=== PATIENT | male | born 1955 | race Caucasian/White ===

== ENCOUNTER 2018-02-10 11:02 | Emergency (ER) | payer OTHER ==
[~2018-02-10] VITALS: Ht 170.2 cm; Wt 83.9 kg
--- NOTE | 2018-02-10 11:03 | NUR ---
PT AMBULATES TO BED 2
[2018-02-10 11:08] VITALS: BP 167/116
[2018-02-10] MEDS ORDERED: ASPIRIN 81 MG TAB.CHEW PO ONE (11:10)
--- NOTE | 2018-02-10 11:10 | NUR ---
Patient being evaluated by physician at bedside.
--- NOTE | 2018-02-10 11:10 | NUR ---
62Y/M BIB DAUGHTER WITH C/O RT SIDED CHEST PAIN 10/10 RADIATING TO THE BACK SINCE LAST NIGHT WITH NAUSEA AND DIZZINESS; WAS SEEN TODAY AT A CLINIC IN [place]. PT DTR STATES " IF THE CHEST DAYLIN CONSIST FOR THE DAY TO TAKE PT TO THE ER DEPT." BED DOWN, BEDRAIL UP X 1, ER MD AWARE AND NOTITIFIED OF PT STATUS. WILL CONT TO MONITOR PT. HX; HTN RX; "CAN'T REMEMBMER"
[2018-02-10 11:51] LABS: HEMATOCRIT 50.1 % (36-52); HEMOGLOBIN 17.2 g/dL (12.0-18.0); MEAN CORPUSCULAR HEMOGLOBIN 31 pg (27-31); MEAN CORPUSCULAR HGB CONC 34 g/dL (33-37); MEAN CORPUSCULAR VOLUME 89.7 fL (80-94); PLATELET COUNT (AUTO) 269 K/uL (140-450); RED BLOOD CELL COUNT(AUTO) 5.59 MIL/uL (4.20-6.10); RED CELL DISTRIBUTION WIDTH 13.1 % (11.6-13.7); WHITE BLOOD COUNT (AUTO) 14.1 K/uL (4.8-10.8)
[2018-02-10 12:05] LABS: BASOPHILS % (MANUAL) 0 % (0-2); EOSINOPHILS % (MANUAL) 0 % (0-4); LYMPHOCYTES % (MANUAL) 5 % (20-46); MONOCYTES % (MANUAL) 5 % (5-12)
[2018-02-10 12:13] LABS: ANION GAP 12.7 (8-16); CARBON DIOXIDE 28.8 mmol/L (21-32); CREATININE 1.1 mg/dL (0.7-1.3); POTASSIUM 4.5 mmol/L (3.5-5.1)
[2018-02-10 12:15] LABS: PROTHROMBIN TIME 10.4 secs (10.8-13.4)
[2018-02-10 12:18] LABS: ALBUMIN 4.2 g/dL (3.4-5.0); TOTAL BILIRUBIN 0.9 mg/dL (0.0-1.0)
[2018-02-10] MEDS ORDERED: KETOROLAC 60 MG/2 ML VIAL IM ONE (12:30)
[2018-02-10 13:11] VITALS: BP 155/98
--- NOTE | 2018-02-10 13:11 | NUR ---
Patient discharged with v/s stable. Written and verbal after care instructions given and explained. Patient alert, oriented and verbalized understanding of instructions. Ambulatory with steady gait. All questions addressed prior to discharge. ID band removed. Patient advised to follow up with PMD. Rx of norco, motrin given. Patient educated on indication of medication including possible reaction and side effects. Opportunity to ask questions provided and answered.
== END 2018-02-10 13:11 | disposition home or self-care (01) ==
LOC: MED 11:02
DX: R07.89 Other chest pain (principal); I10 Essential (primary) hypertension
CPT/HCPCS: 36415; 71045; 80053; 83880; 84484; 85025; 85610; 85730; 93005; 96372; 99285; J1885

== ENCOUNTER 2018-02-11 00:15 | Inpatient (IN) | payer OTHER ==
[~2018-02-11] VITALS: Ht 170.2 cm; Wt 83.9 kg
[2018-02-11 00:18] VITALS: BP 131/85
--- NOTE | 2018-02-11 00:21 | NUR ---
0018 TO ER BED 6
--- NOTE | 2018-02-11 00:34 | NUR ---
PT C/O R SIDED CHEST PAIN X1 DAY. WAS SEEN TODAY IN ED AT 1000. TOOK NORCO RX AT 0000 THEN PT SWEATING. DENIES N/V/D; SKIN IS PINK/WARM/DRY; AWAKE, ALERT LUNGS CLEAR BL; HR EVEN AND REGULAR; PT DENIES ANY FEVER, SOB, OR COUGH AT THIS TIME; PATIENT STATES PAIN OF 10/10 AT THIS TIME; VSS; PATIENT POSITIONED FOR COMFORT; HOB ELEVATED; BEDRAILS UP X2; BED DOWN. ER MD MADE AWARE OF PT STATUS.
[2018-02-11] MEDS ORDERED: KETOROLAC 30 MG/ML VIAL IVP ONE (00:35)
[2018-02-11] MEDS ORDERED: ASPIRIN 325 MG TAB PO ONE (00:35)
--- NOTE | 2018-02-11 00:46 | NUR ---
XRAY AT BEDSIDE
--- NOTE | 2018-02-11 00:58 | NUR ---
BLOOD DRAWN AND SENT TO COMMUNITY SERVICE WORKER
[2018-02-11 01:02] LABS: HEMATOCRIT 47.9 % (36-52); HEMOGLOBIN 16.4 g/dL (12.0-18.0); MEAN CORPUSCULAR HEMOGLOBIN 31 pg (27-31); MEAN CORPUSCULAR HGB CONC 34 g/dL (33-37); MEAN CORPUSCULAR VOLUME 89.2 fL (80-94); PLATELET COUNT (AUTO) 238 K/uL (140-450); RED BLOOD CELL COUNT(AUTO) 5.38 MIL/uL (4.20-6.10); RED CELL DISTRIBUTION WIDTH 13.3 % (11.6-13.7); WHITE BLOOD COUNT (AUTO) 14.5 K/uL (4.8-10.8)
[2018-02-11 01:13] LABS: ANION GAP 11.5 (8-16); CREATININE 1.3 mg/dL (0.7-1.3); POTASSIUM 3.5 mmol/L (3.5-5.1)
[2018-02-11 01:19] LABS: ALBUMIN 3.6 g/dL (3.4-5.0); TOTAL BILIRUBIN 2.1 mg/dL (0.0-1.0)
[2018-02-11 01:21] LABS: LYMPHOCYTES % (MANUAL) 5 % (20-46); MONOCYTES % (MANUAL) 8 % (5-12)
--- NOTE | 2018-02-11 01:22 | NUR ---
pt stated pain relived. pt's daughter at bedside.
[2018-02-11 01:33] LABS: PROTHROMBIN TIME 11.1 secs (10.8-13.4)
--- NOTE | 2018-02-11 02:45 | NUR ---
pt left for CT via wheelchair per tech.
--- NOTE | 2018-02-11 03:29 | NUR ---
pt sleeping, stated no pain. daughter at bedside.
[2018-02-11] MEDS ORDERED: NACL 0.9% 1,000 ML IV ONE (03:35)
--- NOTE | 2018-02-11 04:28 | NUR ---
NOTIFIED DR. MATA FOR THE CT CRITICAL REPORT.
--- NOTE | 2018-02-11 05:33 | NUR ---
REPORT GIVEN TO CHARGE NURSE JENNY. PT SLEEPING BUT AROUSABLE, PT STATED NO DISCOMFORT OR PAIN AT THIS MOMENT.
[2018-02-11] MEDS ORDERED: metroNIDAZOLE 500 MG/NS PREMIX 100 ML IV ONE (05:45)
[2018-02-11] MEDS ORDERED: PIPERACILLIN/TAZOBACTAM 3.375 GM in DEXTROSE 5% 50 ML IV ONE (05:45)
--- NOTE | 2018-02-11 06:00 | NUR ---
BLOOD CULTURES DRAWN AND WALKED OVER TO BLOOD BANK
[2018-02-11] MEDS ORDERED: PIPERACILLIN/TAZOBACTAM 3.375 GM VIAL IV ONE (06:10)
--- NOTE | 2018-02-11 06:41 | NUR ---
Patient appears to be resting comfortably in bed. Vital Signs within normal limits. Respirations even and unlabored.
--- NOTE | 2018-02-11 07:02 | NUR ---
Pt report given to MICHAELA. Transfer of care at this time.
[2018-02-11] MEDS ORDERED: MORPHINE SULFATE 2 MG/ML SYR IVP PRN ×2 (07:05→20:10)
[2018-02-11] MEDS ORDERED: ACETAMINOPHEN 325 MG TAB PO PRN (07:05)
[2018-02-11] MEDS ORDERED: ONDANSETRON 4 MG/2 ML VIAL IVP PRN (07:05)
--- NOTE | 2018-02-11 07:23 | NUR ---
RECEIVED REPORT FROM CRATE REPAIRER RN. PT RESTING IN BED. ALERT AWAKE. SKIN DRY AND INTACT. LUNGS CLEAR ON AUSCULTATION. LEFT AC 20G. SALINE LOCK. ABDOMEN SOFT, ROUND AND NON-TENDER. ACTIVE BOWEL SUND. SKIN INTACT. DENIES PAIN AT THIS TIME. VS WITHIN NORMAL LIMIT. WILL CONTINUE TO MONITOR.
[2018-02-11 07:25] VITALS: BP 110/75
--- NOTE | 2018-02-11 07:25 | NUR ---
RECEIVED PATIENT FROM ED VIA [employer]. RECEIVED REPORT FROM ED RN. PATIENT IN STABLE CONDITION. AO X4. SPEAKS FIL[place] AND PERSIAN. NO COMPLAINTS OF PAIN OR DISCOMFORT. DENIES CHEST PAIN. LUNGS CTA. HEART RHYTHM REGULAR. SKIN INTACT. PT IS AMBULATORY WITHOUT ASSIST, GAIT EVEN AND STEADY. IV SITE PATENT AND ASYMPTOMATIC, WILL START IVF PER MD ORDERS. ALL SAFETY PRECAUTIONS IN PLACE, WILL CONTINUE TO MONITOR.
--- NOTE | 2018-02-11 07:55 | NUR ---
Patient admitted to under the care of Dr. Swift . Admited to MST. Pt. transferred to go to room 112A, safely on stable condition. Belongings list completed. Report given to SOLOMON Boucher.
[2018-02-11] MEDS: DEXT 5% / NACL 0.9% 1,000 ML IV SCH ×2 (08:38→20:46)
--- NOTE | 2018-02-11 11:30 | NUR ---
PHARMACY HAS CALLED DR. VAZQUEZ/DR. CONDE FOR CLARIFICATION ON PAIN MEDICATION. THEY WILL UPDATE THE MEDICATIONS AND PUT INTO EMAR.
--- NOTE | 2018-02-11 12:17 | NUR ---
PT COMPLAINING OF 8/10 ABDOMINAL PAIN. WILL CALL PHARMACY FOR UPDATE ON PAIN MEDICATION.
--- NOTE | 2018-02-11 12:26 | NUR ---
EXPLAINED TO PATIENT THAT PAIN MEDS ARE NOT AVAILABLE YET, PHARMACY STILL HAS TO VERIFY/CLARIFY INFO REGARDING PAIN MEDICATION. PT STATES THAT ABDOMINAL PAIN IS NOW MILD, RATED 2/10, AND TOLERABLE.
[2018-02-11] MEDS: PIPER/TAZO 3.375GM/D5W PREMIX 50 ML IV SCH ×2 (14:05→20:46)
--- NOTE | 2018-02-11 14:50 | NUR ---
DR. PHARMACY, DR. CONDE HAS NOT CALLED BACK FOR PAIN MEDICATION CLARIFICATION.
--- NOTE | 2018-02-11 14:54 | NUR ---
CM NOTE ADMISSION CHART REVIEW DONE. INITIAL REVIEW FAXED TO [facility] [phone] ANGELLA # [phone]
[2018-02-11 16:00] VITALS: BP 118/76
--- NOTE | 2018-02-11 17:01 | NUR ---
USED TYPING POOL SUPERVISOR [id number] TO OBTAIN ADMISSIONS ASSESSMENT FROM PATIENT. PT IS AO X4, PORTUGUESE SPEAKING.
--- NOTE | 2018-02-11 19:39 | NUR ---
RECEIVED FROM AM RN IN BED AWAKE AND ALERT. CENTRAL AFRICAN SPEAKING MALE PT. DAUGHTER AT BEDSIDE AND SPEAKING FAROESE WELL. NO SOB. DENIES ANY PAIN AT THIS TIME. PT. DX. OF ACUTE CHOLECYSTITIS. RE-ORIENTED TO CALL LIGHT USE AND CARE PLANS FOR THE NIGHT DISCUSSED WITH THEM. ENCOURAGED TO CALL FOR ANY HELP HE MAY NEED.
--- NOTE | 2018-02-11 20:00 | NUR ---
TALKED WITH MD VAZQUEZ ON THE PHONE AND INFORMED HIM THAT PT. HAVE NO PAIN RELIEVER AND NEEDS TO BE RE-CLARIFIED. WITH NEW ORDERS GIVEN.
[2018-02-11] MEDS ORDERED: MORPHINE SULFATE 4 MG/ML SYR IVP PRN (20:10)
--- NOTE | 2018-02-11 22:00 | NUR ---
PT. TILL AWAKE AND WATCHING TV. DAUGHTER AT BEDSIDE . NO COMPLAINTS OF ANY PAIN DONE.
[2018-02-12 00:14] VITALS: BP 99/65
--- NOTE | 2018-02-12 00:15 | NUR ---
PT. SLEEPING. DAUGHTER AT BEDSIDE STILL. ENCOURAGED THE DAUGHTER TO GO HOME. "OK" PT. WOKE UP EASILY WHEN VITAL SIGNS BEING TAKEN. NO COMPLAINTS OF ANY DOLOR DONE.
--- NOTE | 2018-02-12 02:20 | NUR ---
PT. SLEEPING WELL. NO RESTLESSNESS NOTED. IVF INFUSING WELL AND NO S/S OF INFILTRATION. BED ALARM AT BEDSIDE.
--- NOTE | 2018-02-12 03:31 | NUR ---
SLEEPING. NO RESTLESSNESS.
[2018-02-12] MEDS: PIPER/TAZO 3.375GM/D5W PREMIX 50 ML IV SCH ×3 (06:08→21:33)
--- NOTE | 2018-02-12 07:15 | NUR ---
ENDORSED TO THE NEXT RN FOR CONTINUITY OF CARE. INDEPENDENT. NO COMPLAINTS DONE.
--- NOTE | 2018-02-12 07:15 | NUR ---
RECEIVED BEDSIDE REPORT FROM DEVELOPER PROVER MECHANICAL RN. PATIENT IN STABLE CONDITION. AO X4. FRENCH SPEAKING. DENIES PAIN AND DISCOMFORT. DENIES CHEST PAIN. LUNGS CTA. HEART RHYTHM REGULAR. VITALS STABLE. SKIN INTACT. PT IS AMBULATORY WITHOUT ASSIST, GAIT EVEN AND STEADY. IV SITE PATENT AND ASYMPTOMATIC, INFUSING IVF PER MD ORDERS. ALL SAFETY PRECAUTIONS IN PLACE, WILL CONTINUE TO MONITOR.
[2018-02-12 07:24] LABS: BASOPHILS % (AUTO) 0.2 % (0.0-2.0); EOSINOPHILS # (AUTO) 0.1 K/uL (0-0.4); EOSINOPHILS % (AUTO) 0.8 % (0.0-4.0); HEMATOCRIT 42.6 % (36-52); HEMOGLOBIN 14.7 g/dL (12.0-18.0); LYMPHOCYTES # (AUTO) 1.5 K/uL (2.0-11.5); MEAN CORPUSCULAR HEMOGLOBIN 31 pg (27-31); MEAN CORPUSCULAR HGB CONC 34 g/dL (33-37); MEAN CORPUSCULAR VOLUME 90.9 fL (80-94); MONOCYTES # (AUTO) 1.1 K/uL (0.8-1.0); MONOCYTES % (AUTO) 10.6 % (1.7-9.3); NEUTROPHILS # (AUTO) 7.8 K/uL (1.8-7.7); NEUTROPHILS % (AUTO) 74.4 % (42.2-75.2); PLATELET COUNT (AUTO) 194 K/uL (140-450); RED BLOOD CELL COUNT(AUTO) 4.69 MIL/uL (4.20-6.10); RED CELL DISTRIBUTION WIDTH 13.6 % (11.6-13.7); WHITE BLOOD COUNT (AUTO) 10.5 K/uL (4.8-10.8)
[2018-02-12 07:55] LABS: ALBUMIN 2.5 g/dL (3.4-5.0); ANION GAP 8.1 (8-16); CARBON DIOXIDE 23.5 mmol/L (21-32); CREATININE 1.1 mg/dL (0.7-1.3); PHOSPHORUS 1.7 mg/dL (2.5-4.9); POTASSIUM 3.6 mmol/L (3.5-5.1); TOTAL BILIRUBIN 1.7 mg/dL (0.0-1.0)
[2018-02-12 08:00] VITALS: BP 96/63
--- NOTE | 2018-02-12 08:42 | NUR ---
PATIENT HAS BEEN SCREENED AND CATEGORIZED MODERATE NUTRITION RISK. PATIENT WILL BE SEEN WITHIN 3-5 DAYS OF ADMISSION. 02/13/18 02/15/[address]
--- NOTE | 2018-02-12 09:00 | NUR ---
PT CONTINUES TO DENY PAIN AND DISCOMFORT. HAS BEEN AMBULATING TO BATHROOM WITHOUT ASSIST, GAIT EVEN AND STEADY. WILL CONTINUE TO MONITOR.
[2018-02-12] MEDS: DEXT 5% / NACL 0.9% 1,000 ML IV SCH ×2 (09:41→12:01)
--- NOTE | 2018-02-12 11:30 | NUR ---
INFORMED DAUGHTER THAT WE ARE WAITING FOR CONSULT FROM DR. MORALES.
--- NOTE | 2018-02-12 12:05 | NUR ---
CM NOTE CONCURRENT REVIEW FAXED TO [facility] [phone] ANGELLA # [phone]
--- NOTE | 2018-02-12 14:30 | NUR ---
DR. MORALES HAS SEEN PT AND WILL SCHEDULE FOR LAP TEA, POSSIBLE OPEN FOR TOMORROW. Addendum: 02/12/18 at 1946 by Citlaly Emerson Meng, RN DR. MORALES HAS EXPLAINED THE PROCEDURE, WELL RISKS AND BENEFITS TO PT AND DAUGHTER AT BEDSIDE. PT PREFERS DAUGHTER TO TRANSLATE.
--- NOTE | 2018-02-12 15:10 | NUR ---
OBTAINED CONSENT FROM PATIENT. FILED IN PT CHART.
[2018-02-12 16:00] VITALS: BP 121/77
--- NOTE | 2018-02-12 17:20 | NUR ---
FAMILY MEMBERS AT BEDSIDE WITH PT. PT CONTINUES TO DENY PAIN AND DISCOMFORT. WILL CONTINUE TO MONITOR.
--- NOTE | 2018-02-12 19:15 | NUR ---
ENDORSED POC TO CUSTODIAL ENGINEER RN AT BEDSIDE. PT IN STABLE CONDITION.
--- NOTE | 2018-02-12 19:15 | NUR ---
REPORT RECEIVED, AT BEDSIDE FORM CHRISS CARBAJAL, FOR CONTINUITY OF CARE, PT IN STABLE CONDITION.
--- NOTE | 2018-02-12 20:00 | NUR ---
PT IN LOW BED WITH SIDE RAILS UP AND CALL LEVY IN REACH, FAMILY AT BEDSIDE, PT HAD NO S/S OF PAIN OR DISTRESS AND DENIES PAIN AT THIS TIME. V/S FOLLOWS T 98.8 P 68 R 20 B/P 123/81 02 97% ON R/A.PT HAS L AC AT 20 G FLUSHED PATENT AND RUNNING N/S AT 75MLS/HR.
--- NOTE | 2018-02-12 21:00 | NUR ---
ZOSYN IVPB HUNG ORDERED, NO ADVERSE REACTION NOTED. IV SITE FLUSHED PATENT. PT HAD NO C/O VOICED. BED LOW AND CALL LEVY IN REACH.
[2018-02-13] VITALS (11 sets, daily range): BP systolic 110–138; BP diastolic 66–85
--- NOTE | 2018-02-13 00:30 | NUR ---
PT SLEEPING IN BED NO S/S OF PAIN OR DISTRESS NOTED T 98.5 P 60 R 18 B/P 134/83. 02 97% WITH R/A. SIDE RAILS UP X2 AND CALL LEVY IN REACH.
--- NOTE | 2018-02-13 02:00 | NUR ---
PT IN BED WITH SIDE RAILS UP X 2 URINAL AT BEDSIDE WITH 200MLS OF ANGELO URINE WHICH WAS DUMPED. ZOSYN HUNG ORDERED AND PT ASLEEP BUT AROUSABLE TO LIGHT TOUCH NO C/O VOICED BY RESIDENT.
[2018-02-13] MEDS: PIPER/TAZO 3.375GM/D5W PREMIX 50 ML IV SCH ×3 (05:13→18:28)
--- NOTE | 2018-02-13 07:36 | NUR ---
GAVE REPORT TO CHAVA CARBAJAL DAYSHIFT NURSE FOR ENDORSEMENT OF CARE.
--- NOTE | 2018-02-13 07:37 | NUR ---
RECEIVED BEDSIDE REPORT FROM MULTIPLE KNIFE EDGE TRIMMER OPERATOR NURSE. PATIENT IS AWAKE, ALERT AND ORIENTEDX4. NO SIGNS OF DISTRESS ON RA. NO COMPLAINTS OF PAIN AT THIS TIME. VIETNAMESE SPEAKER. HE AMBULATES. SKIN IS INTACT. MED SURGE PATIENT. IV ON L AC 20G INFUSING D5NS AT 75. CLEAN, DRY AND INTACT. PATIENT NPO FOR SURGERY. SURGERY AT 10 FOR LAP TEA. BED IN LOW POSITION. CALL LIGHT WITHIN REACH. WILL CONTINUE TO MONITOR THE PATIENT
[2018-02-13] MEDS ORDERED: BUPIVACAINE MPF 0.25% 10 ML VIAL INJ ONE (09:23)
[2018-02-13] MEDS ORDERED: LIDOCAINE MPF 1% - 5 mL VIAL 5 ML ONE (09:34)
--- NOTE | 2018-02-13 09:50 | NUR ---
PATIENT PICKED UP BY OR NURSES. PATIENT LEFT IN STABLE CONDITION.
[2018-02-13] MEDS ORDERED: ROCURONIUM 50 MG/5 ML VIAL IV ONE (10:00)
[2018-02-13] MEDS ORDERED: SEVOFLURANE 250 ML BTL INH ONE (10:00)
[2018-02-13] MEDS ORDERED: PROPOFOL 200 MG/20 ML VIAL IV ONE (10:00)
[2018-02-13] MEDS ORDERED: SUCCINYLCHOLINE CHLORIDE 200 MG/10 ML VIAL IVP ONE (10:00)
[2018-02-13] MEDS ORDERED: ONDANSETRON 4 MG/2 ML VIAL ONE (10:00)
[2018-02-13] MEDS ORDERED: KETOROLAC 30 MG/ML VIAL ONE (10:00)
[2018-02-13] MEDS ORDERED: DEXAMETHASONE 4 MG/ML VIAL ONE (10:00)
[2018-02-13] MEDS ORDERED: MIDAZOLAM 2 MG/2 ML VIAL ONE ×2 (10:14→11:23)
[2018-02-13] MEDS ORDERED: MEPERIDINE 50 MG/ML SYR ONE (10:15)
[2018-02-13] MEDS ORDERED: fentaNYL 0.05 MG/ML VIAL ONE (10:15)
[2018-02-13] MEDS ORDERED: LIDOCAINE 1% 50 ML ONE (10:32)
[2018-02-13] MEDS ORDERED: LIDOCAINE 1% 500 MG/50 ML VIAL INJ ONE (10:55)
[2018-02-13] MEDS ORDERED: PIPERACILLIN/TAZOBACTAM 3.375 GM VIAL IV ONE (10:57)
[2018-02-13] MEDS ORDERED: LACTATED RINGERS 1,000 ML IV SCH (11:03)
[2018-02-13] MEDS ORDERED: HYDROmorphone 1 MG/ML AMP IVP PRN ×2 (11:05→11:25)
[2018-02-13] MEDS ORDERED: MEPERIDINE 25 MG/ML SYR IVP PRN (11:05)
[2018-02-13] MEDS ORDERED: ONDANSETRON 4 MG/2 ML VIAL IVP PRN ×2 (11:05→11:25)
[2018-02-13] MEDS ORDERED: diphenhydrAMINE 50 MG/ML VIAL IVP PRN (11:05)
--- NOTE | 2018-02-13 12:10 | NUR ---
RECEIVED REPORT FROM OR NURSES. PATIENT UNABLE TO GET SURGERY DONE. PATIENTS VITALS ARE WITHIN NORMAL LIMITS BUT WHEN SLEEPING O2SATS DROP. ADMINISTERED 2L O2 VIA NC. FAMILY AT BEDSIDE.
[2018-02-13] MEDS: DEXT 5% / NACL 0.45% 1,000 ML IV SCH ×2 (12:27→19:24)
--- NOTE | 2018-02-13 12:31 | NUR ---
ADMINISTERED MEDS. PATIENT TOLERATED WELL. NO SIGNS OF DISTRESS. WILL CONTINUE TO MONITOR. DAUGHTER AT BEDSIDE.
[2018-02-13] MEDS: KETOROLAC 30 MG/ML VIAL IVP SCH ×2 (13:44→21:00)
--- NOTE | 2018-02-13 14:00 | NUR ---
PATIENT IS SLEEPING. NO SIGNS OF DISTRESS ON 2L NC. BED IN LOW POSITION. CALL LIGHT WITHIN REACH. WILL CONTINUE TO MONITOR THE PATIENT. FAMILY AT BEDSIDE.
--- NOTE | 2018-02-13 16:56 | NUR ---
PATIENT IS SLEEPING. NO SIGNS OF DISTRESS ON 2L NC. WILL CONTINUE TO MONITOR THE PATIENT. FAMILY AT BEDSIDE.
--- NOTE | 2018-02-13 18:30 | NUR ---
ADMINISTERED IV ANTIBIOTICS. PATIENT TOLERATED WELL. WILL CONTINUE TO MONITOR. DAUGHTER AT BEDSIDE
--- NOTE | 2018-02-13 19:21 | NUR ---
GAVE BEDSIDE REPORT TO VAMP STITCHER NURSE. PATIENT ENDORSED IN STABLE CONDITION
--- NOTE | 2018-02-13 19:22 | NUR ---
RECD. RESTING IN BED, AWAKE, A/OX4. RESPIRATION EVEN AND UNLABORED. ON 02 AT 2 LITERS VIA N/C, 02 SAT - 97%. IV OF D51/2 NS AT 125 ML/HR INFUSING, LEFT AC G20. INCISION IN THE ABDOMEN OPEN TO AIR, DRY AND CLEAN. ON BILATERAL LEG SEQUENTIALS. PLAN OF CARE FOR THE SHIFT DISCUSSED WITH DAUGHTER AND PATIENT. VERBALIZED UNDERSTANDING. DENIES PAIN 0/10.
--- NOTE | 2018-02-13 20:00 | NUR ---
ADVISED TO ALTERNATELY TURN TO RIGHT AND LEFT SIDES WHILE IN BED. VERBALIZED UNDERSTANDING.
--- NOTE | 2018-02-13 21:00 | NUR ---
PT REFUSED TORADOL VERBALIZED NOT PAIN
[2018-02-14] VITALS: BP 93/53
--- NOTE | 2018-02-14 | NUR ---
SLEEPING COMFORTABLY IN BED, NO DISTRESS NOTED.
[2018-02-14] MEDS: PIPER/TAZO 3.375GM/D5W PREMIX 50 ML IV SCH (00:54)
[2018-02-14] MEDS: DEXT 5% / NACL 0.45% 1,000 ML IV SCH ×3 (00:57→11:24)
--- NOTE | 2018-02-14 04:00 | NUR ---
AWAKE IN BED, WHEN INQUIRED IF HE HAS PAIN, STATED "NONE".
[2018-02-14] MEDS: KETOROLAC 30 MG/ML VIAL IVP SCH (05:00)
--- NOTE | 2018-02-14 05:00 | NUR ---
DENIES ABDOMINAL PAIN 0/10. TORADOL NOT GIVEN, PATIENT STATED "I AM OK".
--- NOTE | 2018-02-14 06:58 | NUR ---
CONDITION REMAIN STABLE. NO COMPLAINT OF PAIN DURING SHIFT. ABLE TO SLEEP WELL. WILL ENDORSE TO AM NURSE FOR CONTINUITY OF CARE.
--- NOTE | 2018-02-14 07:20 | NUR ---
RECEIVED PT REPORT FROM STORM DOOR MAKER NURSE AT BEDSIDE. PATIENT IS AAOX4. NO S/S ON RM AIR. NO C/O PAIN AT THIS TIME. PT AMBULATES. SKIN IS INTACT. IV ON L AC 20G, SL. CLEAN, DRY AND INTACT. BED IN LOWEST POSITION. CALL LIGHT WITHIN REACH. WILL CONTINUE TO MONITOR.
--- NOTE | 2018-02-14 07:25 | NUR ---
ENDORSED TO SOLOMON CORNELIUS FOR CONTINUITY OF CARE.
[2018-02-14 07:30] LABS: HEMOGLOBIN 13.6 g/dL (12.0-18.0); LYMPHOCYTES # (AUTO) 0.9 K/uL (2.0-11.5); LYMPHOCYTES % (AUTO) 10.2 % (20.5-51.1); MEAN CORPUSCULAR HEMOGLOBIN 31 pg (27-31); MEAN CORPUSCULAR HGB CONC 34 g/dL (33-37); MEAN CORPUSCULAR VOLUME 90.6 fL (80-94); MONOCYTES # (AUTO) 0.6 K/uL (0.8-1.0); MONOCYTES % (AUTO) 6.8 % (1.7-9.3); NEUTROPHILS # (AUTO) 7.3 K/uL (1.8-7.7); PLATELET COUNT (AUTO) 223 K/uL (140-450); RED BLOOD CELL COUNT(AUTO) 4.41 MIL/uL (4.20-6.10); RED CELL DISTRIBUTION WIDTH 13.1 % (11.6-13.7); WHITE BLOOD COUNT (AUTO) 8.8 K/uL (4.8-10.8)
[2018-02-14 07:50] LABS: ALBUMIN 2.3 g/dL (3.4-5.0); ANION GAP 10.7 (8-16); POTASSIUM 3.7 mmol/L (3.5-5.1); TOTAL BILIRUBIN 0.6 mg/dL (0.0-1.0)
[2018-02-14 08:00] VITALS: BP 114/77
--- NOTE | 2018-02-14 08:53 | NUR ---
PT VOIDED, PASSED GAS, DENIES ANY PAIN AT THIS TIME.
--- NOTE | 2018-02-14 14:54 | NUR ---
CM NOTE CONCURRENT REVIEW FAXED TO [facility] [phone] ANGELLA # [phone]
[2018-02-14] MEDS ORDERED: CIPR500P4 PO (15:47)
[2018-02-14] MEDS ORDERED: ACET-1182 PO (15:47)
[2018-02-14] MEDS ORDERED: METR250T2 PO (15:47)
[2018-02-14] MEDS ORDERED: ACET1TAB93 PO (15:47)
[2018-02-14 16:00] VITALS: BP 140/81
--- NOTE | 2018-02-14 16:40 | NUR ---
EDUCATED PATIENT AND DAUGHTER ON DISEASE PROCESS, ABN S/SX, WHEN TO GO TO THE ER, EDUCATED ON MEDS AND GAVE PRESCRIPTIONS, EDUCATED ON F/U WITH PCP AND RM SAHU. DAUGHTER SAID SHE WILL SEE PCP FIRST BUT IF HE HAS SEVERE PAIN OR WORSENING SYMPTOMS SHE WILL TAKE HIM TO THE [facility]. CLEANSED THE WOUND, EDUCATED PATIENT AND DAUGHTER ON WOUND CARE. GAVE WOUND CARE SUPPLIES. TOOK PHOTO. DID NOT GIVE PNA VACCINE, NOT A CANDIDATE, FLU VACCINE RECEIVED 12/2017. REMOVED IV, TIP INTACT. REMOVED ID BANDS. PATIENT LEFT WITH FAMILY IN STABLE CONDITION.
== END 2018-02-14 16:40 | disposition home or self-care (01) | DRG 264 ==
LOC: MED 00:15 → MTU 06:48
PROVIDERS: ADMIT Hospitalist; ATTEND Hospitalist
PROC: 0FJ44ZZ Inspection of Gallbladder, Percutaneous Endoscopic Approach (ICD-10-PCS; principal; 2018-02-13 10:00)
DX: K80.00 Calculus of gallbladder with acute cholecystitis without obstruction (principal); D72.825 Bandemia; E66.9 Obesity, unspecified; K66.0 Peritoneal adhesions (postprocedural) (postinfection); I10 Essential (primary) hypertension; Z68.29 Body mass index [BMI] 29.0-29.9, adult
CPT/HCPCS: 36415; 71045; 71275; 76705; 80053; 83690; 83880; 84100; 84484; 85025; 85379; 85610; 85730; 87040; 93005; 96365; 96367; 96375; 99285; J0330; J1100; J1885; J2001; J2175; J2250; J2405; J2543; J2704; J3010; J3490; J7042; Q0092; Q9967